=== PATIENT | female | born 1940 | race Caucasian/White ===

== ENCOUNTER → 2018-11-25 08:55 | Outpatient (CLI) | payer MEDICARE, SELFPAY ==
--- NOTE | 2018-11-25 | DI.MRI.S_ITS ---
PROCEDURE: MR LUMBAR SPINE WO CON INDICATIONS: LOW BACK PAIN TECHNIQUE: Noncontrast sagittal T1 spin echo and T2 fast echo, sagittal STIR, axial T1 and T2 fast spin echo through the lumbar spine. In cases with scoliosis, additional coronal T2 fast spin echo may be performed. COMPARISON: None. FINDINGS: Image quality: Excellent. Alignment and Curvature: Straightening of the normal lordotic curvature. Grade 1 retrolisthesis of L3 on L4 and L5 on S1 Bone Marrow: Multilevel degenerative endplate sclerosis and spurring. Diffuse facet arthropathy. No acute fracture Spinal Cord: Conus medullaris terminates at the L1 level. Visualized cord demonstrates normal signal and size. Paraspinous Soft Tissues: No paravertebral masses. L1-L2: Normal appearance. L2-L3: Bilateral facet arthropathy. Mild central canal narrowing. Lateral recesses appear patent. Mild right foraminal stenosis. Moderate left foraminal stenosis although no definite deformity of the exiting nerve root L3-L4: broad-based posterior disc bulge and bilateral facet arthropathy. Mild central canal narrowing. Moderate left foraminal stenosis with nerve root compression. Mild to moderate right foraminal stenosis L4-L5: Broad-based posterior disc bulge and bilateral facet arthropathy. Moderate central canal narrowing. Partial effacement of both lateral recesses although this is mildly asymmetric, left greater than right on image 27 series 6. Severe left foraminal narrowing with nerve root compression. Mild right foraminal stenosis L5-S1: Minimal central canal narrowing. Partial effacement of both lateral recesses with bilaterally symmetric appearance. Moderate right foraminal stenosis with minimal nerve root compression. Severe left foraminal narrowing with nerve root compression IMPRESSION: Multilevel lumbar spondylosis and facet arthropathy with moderate canal stenosis seen at L4-L5, where there is also asymmetric (left greater than right) subarticular narrowing. Severe left L5-S1, and L4-L5 foraminal stenoses. Moderate left L2-L3 foraminal stenosis. Dictated by: Refugio Raymundo M.D. on 11/25/2018 at 10:13 Approved by: Refugio Raymundo M.D. on 11/25/2018 at 10:19
== END ==
PROVIDERS: Visit Provider Physical Medicine & Rehabilitation Pain Medicine
DX: M54.5 Low back pain (principal); M47.816 Spondylosis without myelopathy or radiculopathy, lumbar region; M47.817 Spondylosis without myelopathy or radiculopathy, lumbosacral region; M48.061 Spinal stenosis, lumbar region without neurogenic claudication; M48.07 Spinal stenosis, lumbosacral region
CPT/HCPCS: 72148